=== PATIENT | male | born 1945 | race African-American/Black ===

== ENCOUNTER 2019-10-21 15:43 | Emergency (ER) | payer OTHER, BC ==
[~2019-10-21] VITALS: Ht 177.8 cm; Wt 77.0 kg
[2019-10-21 17:31] LABS: HEMATOCRIT. 41.9 % (42.0-52.0); HEMOGLOBIN. 14.2 g/dL (14.0-18.0); MEAN CORPUSCULAR VOLUME 79.9 fL (80.0-94.0); MEAN PLATELET VOLUME 9.1 fl (7.4-10.4); PLATELET 286 x1000/uL (130-400); RED BLOOD CELL COUNT 5.25 mill/uL (4.7-6.1); RED CELL DISTRIBUTION WIDTH 14.7 % (11.6-14.6)
[2019-10-21 17:37] LABS: CHLORIDE 100 mEq/L (98-107)
[2019-10-21 17:55] LABS: PROTHROMBIN TIME 10.8 sec (9.6-11.0)
[2019-10-21 18:05] LABS: ATYPICAL LYMPHOCYTES 2; PLATELET ESTIMATE NORMAL
[2019-10-21 18:15] VITALS: BP 123/76
== END 2019-10-21 18:50 | disposition home or self-care (01) ==
LOC: ER 15:43
DX: R06.02 Shortness of breath (principal); Z98.890 Other specified postprocedural states
CPT/HCPCS: 36415; 71045; 80053; 83605; 83615; 83880; 84145; 84484; 85025; 93005; 99285

== ENCOUNTER 2020-05-19 11:45 | Emergency (ER) | payer BC, MEDICAID ==
[~2020-05-19] VITALS: Ht 172.7 cm; Wt 70.0 kg
[2020-05-19 12:34] LABS: BASOPHILS % 0.6 % (0.0-2.0); EOSINOPHILS % 0.7 % (0.0-5.0); HEMATOCRIT. 42.4 % (42.0-52.0); HEMOGLOBIN. 13.7 g/dL (14.0-18.0); MEAN CORPUSCULAR HEMOGLOBIN 26.1 pg (28.0-32.0); MEAN CORPUSCULAR VOLUME 81.1 fL (80.0-94.0); MEAN PLATELET VOLUME 8.6 fl (7.4-10.4); MONOCYTES % 5.9 % (2.0-8.0); NEUTROPHILS % 63.8 % (40.0-76.0); PLATELET 226 x1000/uL (130-400); RED BLOOD CELL COUNT 5.23 mill/uL (4.7-6.1); RED CELL DISTRIBUTION WIDTH 15.1 % (11.6-14.6)
[2020-05-19 12:35] LABS: CHLORIDE 108 mEq/L (98-107)
[2020-05-19 12:44] LABS: PROTHROMBIN TIME 10.8 sec (9.6-11.0)
[2020-05-19 12:58] LABS: COLOR URINE YELLOW (YELLOW); KETONES URINE NEGATIVE (NEGATIVE); LEUKOCYTE ESTERASE URINE NEGATIVE (NEGATIVE); NITRITE URINE NEGATIVE (NEGATIVE); OCCULT BLOOD URINE NEGATIVE (NEGATIVE); PROTEIN URINE NEGATIVE (NEGATIVE); UROBILINOGEN URINE 0.2 E.U./dL (0.2-1.0)
[2020-05-19 13:00] LABS: CLARITY URINE CLEAR (CLEAR)
[2020-05-19 14:04] VITALS: BP 132/78
== END 2020-05-19 13:45 | disposition home or self-care (01) ==
LOC: ER 12:08 → CANBEDREQ 14:19
DX: R55 Syncope and collapse (principal)
CPT/HCPCS: 36415; 71045; 80053; 81003; 84484; 85025; 93005; 99285